=== PATIENT | female | born 1995 | race Caucasian/White ===

== ENCOUNTER → 2018-08-09 | Outpatient (CLI) | payer OTHER ==
[~2018-08-09] MED LIST: CEFD300C PO; CITA10TA4 PO; METF500S5 PO; NORG1TAB6 PO; NORT25CA PO; TIZA4TAB PO
--- NOTE | 2018-08-09 11:59 | KCIC ---
MRI of the lumbar spine without contrast 08/09/2018 CLINICAL HISTORY: Low back pain which radiates down the right leg. TECHNIQUE: Unenhanced T1-weighted and T2-weighted sagittal and axial and inversion recovery sagittal images of the lumbar spine were obtained. FINDINGS: Comparison is made to radiographs of the lumbar spine dated 07/31/2018. Minimal S-shaped curvature of the thoracolumbar spine is seen. Degenerative signal changes and loss of height are seen involving the L5-S1 disc. Degenerative signal changes are seen within the marrow surrounding this disc. The conus medullaris is normal morphology, position, and signal characteristics. The L1-2, L2-3 and L3-4 disc spaces are within normal limits. At the L4-5 disc space there is a minimal generalized disc bulge. Degenerative changes are seen involving the facet joints bilaterally. There is mild ligamentum flavum hypertrophy bilaterally. These findings do not result in significant central spinal canal or neural foraminal stenosis. At the L5-S1 disc space there is a mild generalized disc bulge. Superimposed on this disc bulge is a central/right paracentral focal disc protrusion. This measures 3 mm in AP diameter. Degenerative changes are seen involving the facet joints bilaterally. These findings do not result in significant central spinal canal or neural foraminal stenosis. IMPRESSION: The changes of mild degenerative disc disease are seen involving the lower lumbar spine. These findings do not result in significant central spinal canal or neural foraminal stenosis at any level. Electronically signed by: Khurram Fisher MD (08/09/2018 11:56 AM) [id number]
== END | disposition home or self-care (01) ==
LOC: KCIC MRI 09:24
PROVIDERS: ATTEND Registered Nurse
DX: M51.36 Other intervertebral disc degeneration, lumbar region (principal)
CPT/HCPCS: 72148

== ENCOUNTER → 2018-08-28 | Outpatient (CLI) | payer OTHER ==
--- NOTE | 2018-08-28 15:26 | KCIC ---
MRI of the brain without contrast 08/28/2018 Clinical History: Migraine headaches for 9 years. Technique: Unenhanced T1-weighted sagittal and axial, T2-weighted axial and coronal and FLAIR and diffusion-weighted axial images of the brain were obtained. Findings: The ventricles and sulci are within normal limits in size and configuration. Multiple small scattered areas of increased signal intensity are seen within the periventricular and subcortical white matter of both cerebral hemispheres on the FLAIR and T2-weighted images. These measure 2 to 5 mm in size. Their MRI appearance is nonspecific. They can be seen in patients with a history of migraine headaches. A prominent dural calcification is seen within the anterior interhemispheric fissure. This measures 1 cm in size. No acute parenchymal abnormality is seen. No extra-axial fluid collection is seen. There is no MRI evidence of acute ischemia/infarction. Mild mucosal thickening in seen scattered throughout the paranasal sinuses. There is a minimal left mastoid effusion. A small right mastoid effusion is seen. Normal flow voids are seen within the major vascular structures surrounding the brain parenchyma. Impression: 1. Small scattered areas of increased signal intensity are seen within the white matter of both cerebral hemispheres on the FLAIR and T2-weighted images. Their MRI appearance is nonspecific. They can be seen in patients with a history of migraine headaches. 2. No acute parenchymal abnormality is seen. Electronically signed by: Khurram Fisher MD (08/28/2018 3:23 PM) [id number]
== END | disposition home or self-care (01) ==
LOC: KCIC MRI 09:40
PROVIDERS: ATTEND Registered Nurse
DX: G43.909 Migraine, unspecified, not intractable, without status migrainosus (principal); H74.8X3 Other specified disorders of middle ear and mastoid, bilateral
CPT/HCPCS: 70551

== ENCOUNTER → 2018-09-22 | Day surgery (SDC) | payer OTHER ==
[~2018-09-22] MED LIST changes: +IV RINGERS,LACTATED 1000ML 1,000 ML IV SCH; +LIDOCAINE 1% PF 2 ML VIAL. ID PRN; +LIDOCAINE 2% PF 5 ML VIAL. ONE; +MIDAZOLAM HCL/PF 2 MG/2 ML VIAL. IV PRN; +PROPOFOL 40 ML IV ONE; +fentaNYL PF VIAL 100 MCG/2 ML VIAL IV PRN
[2018-09-22 10:10] LABS: U PREG PATIENT NEGATIVE (NEG)
[2018-09-22 11:42] VITALS: BP 117/65
== END | disposition home or self-care (01) ==
LOC: ENDOS 09:25
PROVIDERS: ATTEND Internal Medicine Gastroenterology
DX: K22.2 Esophageal obstruction (principal); K64.0 First degree hemorrhoids; K21.9 Gastro-esophageal reflux disease without esophagitis; F41.9 Anxiety disorder, unspecified; F32.9 Major depressive disorder, single episode, unspecified; E11.9 Type 2 diabetes mellitus without complications; E78.00 Pure hypercholesterolemia, unspecified; J45.909 Unspecified asthma, uncomplicated; Z88.0 Allergy status to penicillin; Z88.2 Allergy status to sulfonamides; Z88.6 Allergy status to analgesic agent; Z91.040 Latex allergy status; Z88.8 Allergy status to other drugs, medicaments and biological substances; M19.90 Unspecified osteoarthritis, unspecified site; Z83.71 Family history of colonic polyps; Z83.3 Family history of diabetes mellitus; Z82.49 Family history of ischemic heart disease and other diseases of the circulatory system; Z79.84 Long term (current) use of oral hypoglycemic drugs; Z79.899 Other long term (current) drug therapy; Z90.49 Acquired absence of other specified parts of digestive tract; Z98.890 Other specified postprocedural states
CPT/HCPCS: 43235; 43450; 45378; 81025; J2001; J2704

== ENCOUNTER 2018-11-10 13:34 | Emergency (ER) | payer OTHER ==
[~2018-11-10] VITALS: Ht 149.9 cm; Wt 86.6 kg
[~2018-11-10 13:34] MED LIST changes: -IV RINGERS,LACTATED 1000ML 1,000 ML IV SCH; -LIDOCAINE 1% PF 2 ML VIAL. ID PRN; -LIDOCAINE 2% PF 5 ML VIAL. ONE; -MIDAZOLAM HCL/PF 2 MG/2 ML VIAL. IV PRN; -PROPOFOL 40 ML IV ONE; -fentaNYL PF VIAL 100 MCG/2 ML VIAL IV PRN
[2018-11-10 13:54] LABS: BASO # 0.1 x10^3/uL (0.0-0.2); BASO % 1 % (0-3); EOS # 0.1 x10^3/uL (0.0-0.7); EOS % 1 % (0-3); HEMATOCRIT 39.7 % (36.0-47.0); HEMOGLOBIN 13.7 g/dL (12.0-15.5); LYMPH # 2.5 x10^3/uL (1.0-4.8); LYMPH % 22 % (24-48); MEAN CORPUSCULAR HEMOGLOBIN 29 pg (25-35); MEAN CORPUSCULAR HGB CONC 35 g/dL (31-37); MEAN CORPUSCULAR VOLUME 85 fL (79-100); MONO # 0.7 x10^3/uL (0.0-1.1); MONO % 6 % (0-9); NEUT # 8.2 x10^3uL (1.8-7.7); NEUT % 71 % (31-73); PLATELET COUNT 215 x10^3/uL (140-400); RED BLOOD COUNT 4.69 x10^6/uL (3.50-5.40); RED CELL DISTRIBUTION WIDTH 13.3 % (11.5-14.5); WHITE BLOOD COUNT 11.6 x10^3/uL (4.0-11.0)
--- NOTE | 2018-11-10 14:10 | RAD ---
Chest, PA and Lateral: Technique: PA and lateral views of the chest were obtained. History: Chest pain. Comparison: None. Findings: The heart and pulmonary vasculature appear within normal limits. The lungs are clear. The pleural margins are clear. Impression: No acute chest process is seen. Electronically signed by: Pedro Luis Canas MD (11/10/2018 2:07 PM) [facility]
[2018-11-10 14:12] LABS: CALCIUM 9.3 mg/dL (8.5-10.1); CREATININE 0.8 mg/dL (0.6-1.0); GFR 88.1; POTASSIUM 3.1 mmol/L (3.5-5.1)
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
[2018-11-10 14:21] LABS: PREG TEST PT QUAL NEGATIVE (NEG)
[2018-11-10] MEDS ORDERED: CONTRAST GIVEN. MC PRN (14:30)
[2018-11-10] MEDS ORDERED: IOHEXOL 350 MG/ML 100 ML VIAL. IV ONE (14:30)
--- NOTE | 2018-11-10 15:16 | RAD ---
CT ANGIOGRAPHY CHEST Indication: Chest pain. . Technique: After intravenous contrast administration, CT imaging was performed of the chest. MIP reconstructions were obtained. Exposure: One or more of the following individualized dose reduction techniques were utilized for this examination: 1. Automated exposure control 2. Adjustment of the mA and/or kV according to patient size 3. Use of iterative reconstruction technique. No prior study for comparison. The visualized thyroid appears symmetric. No significant lymph node enlargement. No pericardial effusion. No pleural effusion. Pulsatility artifact limits evaluation of the ascending aorta. No evidence of descending aortic aneurysm or dissection. Ascending aorta measures approximately 3 cm transverse. Lungs are clear. No evidence of infiltrate. Trachea and mainstem bronchi are patent. Vertebral body height and alignment are intact. No evidence of aggressive bone destruction. Scans to the upper abdomen are limited by technique. Partially visualized liver may be enlarged. IMPRESSION: 1. No evidence of pulmonary embolism or acute abnormality in the chest. 2. Possible hepatomegaly Electronically signed by: Francois Dodd MD (11/10/2018 3:13 PM) [email or web address]
--- NOTE | 2018-11-10 15:19 | EKG ---
[facility] [address] [place] [address] Test Date: 2018-11-10 Test Time: 13:40:10 Pat Name: RUMA PICKETT Department: Room: Gender: F Day Guard: : 1995 Requested By: EMERSON BRITO Order Number: [id number] Reading MD: Measurements Intervals [place] Rate: 113 P: 40 DE: 158 QRS: 56 QRSD: 92 T: -26 QT: 320 QTc: 444 Interpretive Statements SINUS TACHYCARDIA ST & T ABNORMALITY, CONSIDER INFERIOR ISCHEMIA OR LEFT VENTRICULAR STRAIN ABNORMAL ECG No previous ECG available for comparison
[2018-11-10 15:29] VITALS: BP 112/62
== END 2018-11-10 15:34 | disposition home or self-care (01) ==
LOC: ER 13:34
DX: R07.89 Other chest pain (principal); J45.909 Unspecified asthma, uncomplicated; F41.9 Anxiety disorder, unspecified; F32.9 Major depressive disorder, single episode, unspecified; E78.00 Pure hypercholesterolemia, unspecified; E11.9 Type 2 diabetes mellitus without complications; Z90.89 Acquired absence of other organs; Z88.0 Allergy status to penicillin; Z88.2 Allergy status to sulfonamides; Z88.4 Allergy status to anesthetic agent; Z91.040 Latex allergy status; Z88.8 Allergy status to other drugs, medicaments and biological substances
CPT/HCPCS: 36415; 71046; 71275; 80048; 84484; 84703; 85025; 85379; 93005; 99285; Q9967

== ENCOUNTER → 2018-12-06 | Outpatient (CLI) | payer OTHER ==
[2018-11-10 15:29] VITALS: BP 112/62
[2018-12-06 12:54] LABS: BASO % 1 % (0-3); EOS # 0.1 x10^3/uL (0.0-0.7); EOS % 2 % (0-3); HEMATOCRIT 38.7 % (36.0-47.0); HEMOGLOBIN 13.5 g/dL (12.0-15.5); LYMPH # 2.6 x10^3/uL (1.0-4.8); LYMPH % 28 % (24-48); MEAN CORPUSCULAR HEMOGLOBIN 30 pg (25-35); MEAN CORPUSCULAR HGB CONC 35 g/dL (31-37); MEAN CORPUSCULAR VOLUME 85 fL (79-100); MONO # 0.7 x10^3/uL (0.0-1.1); MONO % 7 % (0-9); NEUT # 6.1 x10^3/uL (1.8-7.7); NEUT % 63 % (31-73); PLATELET COUNT 250 x10^3/uL (140-400); RED BLOOD COUNT 4.54 x10^6/uL (3.50-5.40); RED CELL DISTRIBUTION WIDTH 13.3 % (11.5-14.5); WHITE BLOOD COUNT 9.6 x10^3/uL (4.0-11.0)
[2018-12-06 13:08] LABS: BARBITURATES NEG (NEG); BENZODIAZEPINES NEG (NEG); CANNABINOIDS NEG (NEG); COCAINE NEG (NEG); METHADONE NEG (NEG); OPIATES NEG (NEG); PHENCYCLIDINE NEG (NEG)
[2018-12-06 13:09] LABS: AMPHETAMINE/METHAMPHETAMINE NEG (NEG)
[2018-12-06 13:17] LABS: ALBUMIN 4.1 g/dL (3.4-5.0); ALBUMIN/GLOBULIN RATIO 1.1 (1.0-1.7); CALCIUM 9.5 mg/dL (8.5-10.1); GFR 68.1; POTASSIUM 3.8 mmol/L (3.5-5.1); TOTAL BILIRUBIN 0.2 mg/dL (0.2-1.0); TOTAL PROTEIN 7.7 g/dL (6.4-8.2)
== END | disposition home or self-care (01) ==
LOC: LAB 12:29
PROVIDERS: ATTEND Psychiatry & Neurology Neurology
DX: R56.9 Unspecified convulsions (principal)
CPT/HCPCS: 36415; 80053; 80307; 84443; 85025

== ENCOUNTER → 2018-12-11 | Outpatient (CLI) | payer OTHER ==
--- NOTE | 2018-12-11 14:17 | EKG ---
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
--- NOTE | 2018-12-11 16:06 | CARD ---
MR#: [id number] Date of Study: 12/11/2018 Ordering Physician: MATT TALBOT, Referring Physician: MATT TALBOT Tech: Viktoria Sadler RDCS APPROVED REPORT EXAM: Two-dimensional and M-mode echocardiogram with Doppler and color Doppler. Other Information Quality : Good INDICATION Chest Pain 2D DIMENSIONS RVDd2.1 (2.9-3.5cm)Left Atrium(2D)3.2 (1.6-4.0cm) IVSd1.2 (0.7-1.1cm)Aortic Root(2D)2.7 (2.0-3.7cm) LVDd5.1 (3.9-5.9cm)LVOT Diameter2.0 (1.8-2.4cm) PWd1.0 (0.7-1.1cm)LVDs4.4 (2.5-4.0cm) FS (%) 25.0 %SV36.6 ml Aortic Valve AoV Peak Yan.125.0cm/sAoV VTI23.1cm AO Peak GR.6.2mmHgLVOT Peak Yan.80.9cm/s AO Mean GR.4mmHgAVA (VMAX)2.12cm2 TRAVIS (VTI)2.30cm2 Mitral Valve MV E Pzjygcan03.0cm/sMV DECEL CYHK416us MV A Qvphrcnp13.9cm/sE/A Ratio1.0 Tricuspid Valve TR P. Opvfydbd831vs/sRAP AVGHTDMD2fjHz TR Peak Gr.91dmVrZKCA20ygMo LEFT VENTRICLE The left ventricle is normal size. There is normal left ventricular wall thickness. Left ventricle sy stolic function is normal. The Ejection Fraction is estimated at 50%. There is normal LV segmental wa ll motion. RIGHT VENTRICLE The right ventricle is normal size. The right ventricular systolic function is normal. ATRIA The left atrium size is normal. The right atrium size is normal. The interatrial septum is intact wit h no evidence for an atrial septal defect or patent foramen ovale as noted on 2-D or Doppler imaging. AORTIC VALVE The aortic valve is normal in structure and function. Doppler and Color Flow revealed no significant aortic regurgitation. There is no significant aortic valvular stenosis. MITRAL VALVE The mitral valve is normal in structure and function. There is no evidence of mitral valve prolapse. There is no mitral valve stenosis. Doppler and Color Flow revealed no mitral valve regurgitation note d. TRICUSPID VALVE The tricuspid valve is normal in structure and function. Doppler and Color Flow revealed trace tricus pid regurgitation. The PA pressure was estimated at 19 mmHg. There is no tricuspid valve stenosis. PULMONIC VALVE The pulmonic valve is not well visualized. Doppler and Color Flow revealed trace to mild pulmonic jenifer vular regurgitation. There is no pulmonic valvular stenosis. GREAT VESSELS The aortic root is normal in size. The ascending aorta is not well seen. The IVC is normal in size an d collapses >50% with inspiration. PERICARDIAL EFFUSION There is no evidence of significant pericardial effusion. Critical Notification Critical Value: No <Conclusion> The left ventricle is normal size. Left ventricle systolic function is normal. The Ejection Fraction is estimated at 50%. There is no significant aortic valvular stenosis. Doppler and Color Flow revealed no significant aortic regurgitation. Doppler and Color Flow revealed no mitral valve regurgitation noted. Doppler and Color Flow revealed trace tricuspid regurgitation. The PA pressure was estimated at 19 mmHg. Signed by : Anderson Bro MD Electronically Approved : 12/11/2018 16:06:27
== END | disposition home or self-care (01) ==
LOC: NM 14:00
PROVIDERS: ATTEND Registered Nurse
DX: I37.1 Nonrheumatic pulmonary valve insufficiency (principal)
CPT/HCPCS: 93005; 93306

== ENCOUNTER → 2019-01-05 | Outpatient (CLI) | payer OTHER ==
[~2019-01-05] MED LIST changes: -TIZA4TAB PO; +TIZA4TAB2 PO
--- NOTE | 2019-01-05 12:01 | EEG ---
DATE OF SERVICE: 01/05/2019 EEG NUMBER: [id number]. OBJECTIVE: This is a 23-year-old female patient with a history of seizure. EEG was requested to evaluate seizure activity. METHODS: Twenty electrodes were applied according to the international 10-20 electrode placement system. EKG monitoring, hyperventilation, intermittent photic stimulation, monopolar and bipolar montages are routinely utilized. The record was obtained on a digital system with video monitoring. FINDINGS: 1. Background: The patient was recorded in the awake, drowsy, and sleep states. The overall background amplitude is 5-15 microvolts. A posterior dominant rhythm of 8 Hz is observed. 2. Abnormalities: No specific epileptiform discharge or electrographic seizure is seen. No focal or diffuse slowing. 3. Activation: Hyperventilation was performed with fair efforts and normal response. Intermittent photic stimulation was performed with photic driving. No specific epileptiform discharge or electrographic seizure induced by hyperventilation or intermittent photic stimulation. IMPRESSION: This EEG is a normal study for the awake, drowsy, and sleep states. No focal, lateralizing, specific epileptiform discharge, or electrographic seizure is seen. CORNELL QUINTANILLA MD DR: RALPH/veronica JOB#: [id number] / [id number] GWEN
== END | disposition home or self-care (01) ==
LOC: RT 09:09
PROVIDERS: ATTEND Psychiatry & Neurology Neurology
DX: R56.9 Unspecified convulsions (principal)
CPT/HCPCS: 95816

== ENCOUNTER → 2019-04-12 | Outpatient (CLI) | payer OTHER ==
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
== END | disposition home or self-care (01) ==
LOC: KCIC MRI 12:27
PROVIDERS: ATTEND Registered Nurse
DX: M50.21 Other cervical disc displacement, high cervical region (principal); M51.27 Other intervertebral disc displacement, lumbosacral region; M46.87 Other specified inflammatory spondylopathies, lumbosacral region
CPT/HCPCS: 72141; 72146; 72148

== ENCOUNTER → 2019-05-18 | Outpatient (CLI) | payer OTHER ==
[~2019-05-18] MED LIST changes: +ALBU2.5V8 INH; +ALPR0.5T PO; +PRED-220 PO
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
== END | disposition home or self-care (01) ==
LOC: PNCL 09:10
PROVIDERS: ATTEND Anesthesiology
DX: M54.5 Low back pain (principal); M79.604 Pain in right leg; M79.605 Pain in left leg; E11.9 Type 2 diabetes mellitus without complications; K58.9 Irritable bowel syndrome, unspecified; Z90.89 Acquired absence of other organs; Z90.49 Acquired absence of other specified parts of digestive tract; Z79.899 Other long term (current) drug therapy; Z79.84 Long term (current) use of oral hypoglycemic drugs
CPT/HCPCS: G0463

== ENCOUNTER → 2019-08-09 | Outpatient (CLI) | payer OTHER ==
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
== END | disposition home or self-care (01) ==
LOC: KCIC MRI 13:09
PROVIDERS: ATTEND Registered Nurse
DX: M50.33 Other cervical disc degeneration, cervicothoracic region (principal); M48.02 Spinal stenosis, cervical region; M50.21 Other cervical disc displacement, high cervical region; M89.38 Hypertrophy of bone, other site; M40.292 Other kyphosis, cervical region; V89.2XXA Person injured in unspecified motor-vehicle accident, traffic, initial encounter; Y93.89 Activity, other specified; Y92.89 Other specified places as the place of occurrence of the external cause; Y99.8 Other external cause status
CPT/HCPCS: 72141; 72146

== ENCOUNTER → 2020-05-30 | Outpatient (CLI) | payer OTHER ==
--- NOTE | 2020-05-30 17:10 | KCIC ---
MR LUMBAR SPINE WO [id number] History: Reason: LOW BACK PAIN / Spl. Instructions: / History: New left foot drop after epidural for childbirth 04/2020. Chronic LBP Technique: Multiplanar, multi sequential MR imaging was performed of the lumbar spine. Comparison: April 12, 2019 Findings: Normal vertebral body height and alignment. No fracture. Conus terminates at the normal location. No evidence of nerve root clumping. L1-L2: No canal or neuroforaminal narrowing. L2-L3: No canal or neuroforaminal narrowing. L3-L4: No canal or neuroforaminal narrowing. L4-L5: Slight left foraminal disc protrusion. No canal or neuroforaminal narrowing. Mild facet arthr opathy. L5-S1: Central disc protrusion small annular fissure. No canal narrowing. Mild facet arthropathy. No neuroforaminal narrowing. When compared the prior examination the findings are similar. Impression: 1. Mild lumbar spondylosis, unchanged compared to prior. Electronically signed by: Khoa Velazco DO (05/30/2020 5:03 PM) [id number]
== END ==
LOC: KCIC MRI 12:19
PROVIDERS: ATTEND Registered Nurse
DX: M47.816 Spondylosis without myelopathy or radiculopathy, lumbar region (principal)
CPT/HCPCS: 72148

== ENCOUNTER → 2020-06-16 | Outpatient (CLI) | payer OTHER ==
[~2020-06-16] MED LIST changes: +HYDR-2765 PO; +METH750T2 PO
--- NOTE | 2020-06-16 11:24 | PDOC ---
Progress Note - Pain Clinic Date of Service: DOS: DATE: 06/16/20 TIME: 11:19 Diagnosis: Dx: Lumbar radiculopathy with lumbar degenerative disc disease and lumbar herniated disc History or Present Illness: HPI: 24-year-old female returns for follow-up last seen April 2019 patient had similar symptoms but now the pain is increasing and radiate into the left lower extremity much more significantly. Patient have a new MRI scan showing a new finding from a year ago of L4-5 slight left foraminal disc protrusion also L5-S1 so small central disc protrusion and annular fissure. Patient reports she has started physical therapy already and the pain is still present. Patient reports that last time she did physical therapy the pain was resolved significantly but so far it is only been minimally decreased. Patient ports pain low back left lower extremity posterior gluteus posterior lateral thigh lateral anterior thigh anterior medial thigh medial lower leg and into the calf as well on the left side. Patient reports aching sharp tight and dull alternating in the back shooting tingling and burning in the leg with some weakness in the left foot where she drags her toes when she is been walking for more than about 10 to 15 minutes. Patient reports no overt motor loss but significant fatigability and dragging of the left foot with activity. Patient rates her pain is a 10 on scale 10 is worse over the past week 7 on average 3 at its least and is a 7 today. Patient reports is aching sharp dull tight tingling burning cramping radiating in the left leg as described on and off in intensity worse with walking standing changing positions better with sitting or laying down generally awakens her from sleep 3 hours or so. Physical Exam: VS: Blood pressure is 126/55 pulse 90 respirations 18 temperature 98.0 F height is 4 feet 11 inches weight is 197 pounds PE: PHYSICAL EXAMINATION: GENERAL: The patient is awake, alert, oriented, appropriate, very pleasant demeanor HEENT: Shows normocephalic, atraumatic. Extraocular movements are intact and symmetrical. Oral cavity: Mucous membranes moist and pink. Dentition is in tact. NECK: Shows anterior throat supple without palpable lymphadenopathy noted. Swallow reflex symmetrical. CHEST: Shows normal on inspection. Breath sounds are clear bilaterally, no rales rhonchi wheezes auscultated. HEART: Shows S1, S2 clear. No murmurs auscultated. ABDOMEN: Soft, nontender, nondistended, obese. No palpable organomegaly is noted. No rebound or guarding demonstrated. BACK: Shows spine grossly in the midline. Normal-appearing cervical lordotic curvature. There is slightly increased thoracic kyphosis, some minor flattening of the lumbar lordotic curvature. Lumbar paraspinous muscles show symmetrical on inspection, on palpation shows some moderate tenderness diffusely throughout the upper, middle and lower distribution of the paraspinous muscles without specific trigger points, without radiation of pain. The patient has good rotational motion of the lumbar spine, both laterally as well as extension and flexion without significant difficulty. No tenderness over the spinous processes, sacrum or sacroiliac regions. EXTREMITIES: Lower extremities show deep tendon reflexes 2+ in the patellar and tendo calcaneus tendons. Motor exam is 5 on a scale of 5 with right dorsiflexion, extension, quadriceps and hamstring flexion and 4/5 on the left. Peripheral pulses are 1+ posterior tibial. No peripheral edema is noted bilaterally. Lower extremities are warm and dry to touch, equal in color and appearance. Straight leg raise noted to be positive on the left at about 40 degrees, decreased with knee flexion, right side is negative. SKIN: Shows warm and dry, good turgor. No edema. No sores, rashes or bruising throughout. Procedure: Procedure: Options were discussed with the patient. Patient's old chart reviewed as her current medication regimen updated current review of systems updated today as well. We will preauthorize patient for lumbar epidural steroid injection as she has significant radicular pain in the left lower extremity and L4-5 dermatomal distribution. Patient continue with physical therapy stretching strength exercises and doing exercise on her own as well as walking daily as tolerated. We will plan on preauthorization with insurance provider for translaminar L4-5 lumbar epidural steroid injection. Medication Injected: Med Injected: None Condition at Discharge: Condition at Discharge: Condition at discharge stable. MARIA D RICHARDSON MD Jun 16, 2020 11:24
== END | disposition home or self-care (01) ==
LOC: PNCL 10:30
PROVIDERS: ATTEND Anesthesiology
DX: M51.16 Intervertebral disc disorders with radiculopathy, lumbar region (principal); M79.605 Pain in left leg; E78.00 Pure hypercholesterolemia, unspecified; E11.9 Type 2 diabetes mellitus without complications; K21.9 Gastro-esophageal reflux disease without esophagitis; M19.90 Unspecified osteoarthritis, unspecified site; J45.909 Unspecified asthma, uncomplicated; F41.9 Anxiety disorder, unspecified; F32.9 Major depressive disorder, single episode, unspecified; F17.210 Nicotine dependence, cigarettes, uncomplicated; Z79.899 Other long term (current) drug therapy; Z79.84 Long term (current) use of oral hypoglycemic drugs; Z98.890 Other specified postprocedural states; Z72.89 Other problems related to lifestyle; Z88.0 Allergy status to penicillin; Z88.1 Allergy status to other antibiotic agents; Z88.2 Allergy status to sulfonamides; Z91.041 Radiographic dye allergy status; Z88.8 Allergy status to other drugs, medicaments and biological substances
CPT/HCPCS: 99212; G0463

== ENCOUNTER → 2020-07-28 | Outpatient (CLI) | payer OTHER ==
[~2020-07-28] MED LIST changes: +METH-562 PO; -METH750T2 PO
--- NOTE | 2020-07-28 17:59 | KCIC ---
MRI of the brain without contrast 07/28/2020 Clinical History: Migraine headaches and word loss. Technique: Unenhanced T1-weighted sagittal and axial and T2-weighted, FLAIR, . Echo and diffusion-miguel ghted axial images of the brain were obtained. The patient was unable to finish the exam and T2-weigh rani coronal images of the brain were unable to be obtained. Findings: Comparison study is dated 08/28/2018. The ventricles and sulci are within normal limits in size and configuration. Patchy and several small focal areas of increased signal intensity are seen within the periventricular and subcortical white matter of both cerebral hemispheres on the FLAIR and T2-weighted images. These measure 2 mm to 1.1 cm in size. They have not significantly changed since the previous examination. Their MRI appearance is nonspecific. There is no surrounding edema or associated mass effect. No acute parenchymal abnormality is definitely seen. There is no MRI evidence of acute ischemia/infar ction. No extra-axial fluid collection is noted. A prominent dural calcification is seen within the a nterior interhemispheric fissure projecting to the left midline. This is unchanged. Mild to moderate mucosal thickening in seen scattered throughout the paranasal sinuses. Normal flow v oids are seen within the major vascular structures surrounding the brain parenchyma. There is a minim al right mastoid effusion. IMPRESSION: 1. Patchy and several small focal areas of increased signal intensity are seen within the periventric ular and subcortical white matter of both cerebral hemispheres on the FLAIR and T2-weighted images. T heir MRI appearance is nonspecific. They can be seen in patients with a history of migraine headaches . They could also represent areas of small vessel ischemic disease or possibly be seen in the setting of a demyelinating disorder such as multiple sclerosis. They have not significantly changed since e previous examination. 2. No acute parenchymal abnormalities seen. Electronically signed by: Khurram Fisher MD (07/28/2020 5:57 PM) [id number]
== END ==
LOC: KCIC MRI 13:05
PROVIDERS: ATTEND Registered Nurse
DX: G43.909 Migraine, unspecified, not intractable, without status migrainosus (principal); R47.89 Other speech disturbances; Z88.0 Allergy status to penicillin; Z91.040 Latex allergy status; Z88.6 Allergy status to analgesic agent; Z88.2 Allergy status to sulfonamides
CPT/HCPCS: 70551

== ENCOUNTER → 2020-09-04 | Outpatient (CLI) | payer OTHER ==
--- NOTE | 2020-09-04 16:16 | RAD ---
MR#: [id number] Date of Study: 09/04/2020 Ordering Physician: LUZ MARINA SHIN Referring Physician: NAM DUKES Tech: APPROVED REPORT Test Type: Exercise Stress Nurse/Tech: Helena Lackey RN Test Indications: Chest pain Cardiac History: Family history,smoker Medications: See Electronic Medical Record Medical History: See Electronic Medical Record Resting ECG: SR Resting Heart Rate: 97 bpm Resting Blood Pressure: 112/66mmHg Pretest Chest Pain: No chest pain Nurse/Tech Notes S1,S2 and lungs diminished and wheezes bilateral upper lobes. Patient stated she was nervous/anxious about the test. Stress Symptoms Dyspnea,Claudication POST EXERCISE Reason for Termination: Reached target heart rate, Fatigue Target HR: Yes Max HR: 170 bpm 103% of Maximum Predicted HR: 165 bpm Exercise duration: 3:38 min:sec, 2 Stage Exercise capacity: 7.0METs Max Blood Pressure: 137/61mmHg Blood Pressure response to exercise: Normal blood pressure response during stress. Heart Rate response to exercise: WNL Chest Pain: No. Arrhythmia: No. ST Change: No. INTERPRETATION Stress EKG Conclusion: Baseline EKG showed sinus rhythm. No ischemic changes at peak stress. No arr hythmias. LV Perfusion 1 NormalMildModerate reversible defect in the wall. Conclusion 1. Treadmill exercise stress electrocardiogram did not show any diagnostic evidence of ischemia. Signed by : Debbie Dukesally Approved : 09/04/2020 16:15:56
--- NOTE | 2020-09-04 16:42 | CARD ---
MR#: [id number] Date of Study: 09/04/2020 Ordering Physician: LUZ MARINA SHIN, Referring Physician: LUZ MARINA SHIN Tech: Viktoria Sadler ZOHAIB APPROVED REPORT EXAM: Two-dimensional and M-mode echocardiogram with Doppler and color Doppler. Other Information Quality : Fair INDICATION Chest Pain 2D DIMENSIONS RVDd2.6 (2.9-3.5cm)Left Atrium(2D)2.9 (1.6-4.0cm) IVSd1.0 (0.7-1.1cm)Aortic Root(2D)2.6 (2.0-3.7cm) LVDd5.0 (3.9-5.9cm)LVOT Diameter2.0 (1.8-2.4cm) PWd1.0 (0.7-1.1cm)LVDs3.5 (2.5-4.0cm) FS (%) 29.8 %SV68.1 ml LVEF(%)56.7 (>50%) Aortic Valve AoV Peak Yan.117.3cm/sAoV VTI22.0cm AO Peak GR.5.5mmHgLVOT Peak Yan.75.3cm/s LVOT VTI 14.59cmAO Mean GR.3mmHg TRAVIS (VMAX)1.03kh6PHQ (VTI)2.02cm2 Mitral Valve MV E Hzcxljed15.8cm/sMV DECEL GMAT104eb MV A Oglscnan76.5cm/sMV DHP31cd E/A Ratio0.8MVA (PHT)6.67cm2 TDI E/Lateral E'4.4E/Medial E'5.5 LEFT VENTRICLE The left ventricle is normal size. There is normal left ventricular wall thickness. The left ventricu lar systolic function is normal. The Ejection Fraction is 55-60%. There is normal LV segmental wall m otion. The left ventricular diastolic function and filling is normal for age. RIGHT VENTRICLE The right ventricle is normal size. The right ventricular systolic function is normal. ATRIA The left atrium size is normal. The right atrium size is normal. The interatrial septum is intact wit h no evidence for an atrial septal defect or patent foramen ovale as noted on 2-D or Doppler imaging. AORTIC VALVE The aortic valve is normal in structure and function. Doppler and Color Flow revealed no significant aortic regurgitation. There is no significant aortic valvular stenosis. MITRAL VALVE The mitral valve is normal in structure and function. There is no evidence of mitral valve prolapse. There is no mitral valve stenosis. Doppler and color-flow analysis was not performed. TRICUSPID VALVE The tricuspid valve is normal in structure and function. Doppler and Color Flow revealed no tricuspid valve regurgitation noted. There is no tricuspid valve stenosis. PULMONIC VALVE The pulmonic valve is not well visualized. Doppler and Color Flow revealed no pulmonic valvular regur gitation. There is no pulmonic valvular stenosis. GREAT VESSELS The aortic root is normal in size. The ascending aorta is not well seen. The IVC is normal in size an d collapses >50% with inspiration. PERICARDIAL EFFUSION There is no evidence of significant pericardial effusion. Critical Notification Critical Value: No <Conclusion> The left ventricular systolic function is normal. The Ejection Fraction is 55-60%. There is normal LV segmental wall motion. There is no evidence of significant pericardial effusion. Signed by : Luz Marina Shin, Electronically Approved : 09/04/2020 16:42:08
== END ==
LOC: NM 13:27
PROVIDERS: ATTEND Internal Medicine Cardiovascular Disease
DX: R07.9 Chest pain, unspecified (principal); Z87.891 Personal history of nicotine dependence
CPT/HCPCS: 93017; 93306